=== PATIENT | male | born 1950 | race Hispanic/Latino ===

== ENCOUNTER → 2019-04-26 | Outpatient (CLI) | payer MEDICARE ==
[~2019-04-26] MED LIST: ACET-2247 PO; ATOR20TA PO; GLIP1TAB6 PO; ISOS60TA4 PO; METO25TA6 PO
== END | disposition home or self-care (01) ==
LOC: SHCH 09:40
PROVIDERS: ATTEND Internal Medicine Cardiovascular Disease
DX: I11.9 Hypertensive heart disease without heart failure (principal); I21.4 Non-ST elevation (NSTEMI) myocardial infarction; R07.9 Chest pain, unspecified; Z88.0 Allergy status to penicillin; Z88.2 Allergy status to sulfonamides; Z95.1 Presence of aortocoronary bypass graft
CPT/HCPCS: 93306

== ENCOUNTER → 2019-08-08 | Outpatient (CLI) | payer MEDICARE | END | disposition home or self-care (01) | LOC: SHCH 10:32 | PROVIDERS: ATTEND Internal Medicine Cardiovascular Disease | DX: I70.213 Atherosclerosis of native arteries of extremities with intermittent claudication, bilateral legs (principal); R09.89 Other specified symptoms and signs involving the circulatory and respiratory systems | CPT/HCPCS: 93880; 93925 ==

== ENCOUNTER 2021-03-03 08:30 | Day surgery (SDC) | payer MEDICARE ==
[2021-02-25 11:49] LABS: BASOPHILS % (AUTO) 0.7 % (0.0-5.0); EOSINOPHILS % (AUTO) 3.9 % (0.0-8.0); HEMATOCRIT 45.9 % (42-54); LYMPHOCYTES % (AUTO) 18.8 % (21.0-51.0); MEAN CORPUSCULAR HEMOGLOBIN 30.8 pg (27.0-33.0); MEAN CORPUSCULAR HGB CONC 33.1 g/dL (32.0-36.0); MEAN CORPUSCULAR VOLUME 92.9 fL (79-99); MONOCYTES % (AUTO) 8.2 % (3.0-13.0); NEUTROPHILS % (AUTO) 67.6 % (40.0-77.0); PLATELET COUNT (AUTO) 125 K/uL (130-400); RED BLOOD CELL COUNT(AUTO) 4.94 MIL/uL (4.50-6.20); RED CELL DISTRIBUTION WIDTH 13.3 % (11.0-15.5); WHITE BLOOD COUNT (AUTO) 7.5 K/uL (4.8-10.8)
[2021-02-25 11:49] LABS: APPEARANCE,URINE Clear (CLEAR); BILIRUBIN,URINE Negative (NEGATIVE); COLOR,URINE Yellow (YELLOW); GLUCOSE, URINE (UA) >=1000 mg/dL (NEGATIVE); KETONES,URINE Negative (NEGATIVE); LEUKOCYTE ESTERASE ,URINE Negative (NEGATIVE); NITRATE,URINE Negative (NEGATIVE); OCCULT BLOOD,URINE Negative (NEGATIVE); PH,URINE 5.5 (5.0-8.0); PROTEIN,URINE POS 1+ mg/dL (NEGATIVE)
[2021-02-25 12:00] LABS: INR 1.01 (0.85-1.15)
[2021-02-25 12:00] LABS: BACTERIA,URINE None Seen /HPF (None Seen); RBC,URINE 0-1 /HPF (0-1); SQUAMOUS EPITHELIAL CELL,UR 0-2 /HPF (0-2); WBC,URINE None Seen /HPF (0-1)
[2021-02-25 12:01] LABS: PARTIAL THROMBOPLASTIN TIME 28.2 SEC (26.3-35.5)
[2021-02-25 12:10] LABS: CREATININE 1.4 mg/dL (0.5-1.5); POTASSIUM 5.3 mmol/L (3.5-5.1)
[2021-03-02 10:48] VITALS: BP 166/74
[2021-03-03] VITALS (14 sets, daily range): BP systolic 150–173; BP diastolic 75–84
[~2021-03-03] VITALS: Ht 160 cm; Wt 68.6 kg
[~2021-03-03 08:30] MED LIST changes: -ACET-2247 PO; +AEC81 PO; -ATOR20TA PO; +ATOR40TA69 PO; +CLOP75TA14 PO; +FAMO10TA39 PO; +GABA-529 PO; -GLIP1TAB6 PO; -ISOS60TA4 PO; +ISOS60TA77 PO; +LEVO500T90 PO; +LISI10TA24 PO; +METF-444 PO; +PIOG15TA6 PO; +SITA100T12 PO
[2021-03-03] MEDS ORDERED: GENTAMICIN 80 MG/NS 100 ML PB 100 ML IV SCH (09:00)
[2021-03-03] MEDS ORDERED: 0.9%NACL 1000ML 1,000 ML IV ONE (09:28)
[2021-03-03] MEDS ORDERED: CEFTRIAXONE 1G VIAL ONE (09:28)
[2021-03-03] MEDS: CEFTRIAXONE 1G VIAL IVP ONE ×2 (09:34→11:30)
[2021-03-03 10:37] LABS: ABG BASE EXCESS -0.5 mmol/L (-2.0-3.0); ABG HCO3 26.4 mmol/L (21.0-28.0); ABG OXYGEN SATURATION 30.3 % (95.0-99.0); ABG PCO2 52 mmHg (35-48)
[2021-03-03] MEDS ORDERED: ONDANSETRON 4MG INJ ONE (11:14)
[2021-03-03] MEDS ORDERED: LIDOCAINE PF 100MG/5ML (2%) SYRINGE 5ML ONE (11:14)
[2021-03-03] MEDS ORDERED: PROPOFOL 10 MG/ML 20ML VIAL IV ONE (11:14)
[2021-03-03] MEDS ORDERED: ROCURONIUM 10MG/1ML SYR 10 MG/ML ML ONE (11:15)
[2021-03-03] MEDS ORDERED: FENTANYL CITRATE PF 50 MCG/1 ML 2ML VIAL ONE (11:15)
[2021-03-03] MEDS ORDERED: EPHEDRINE SULFATE 50 MG/ML AMPULE ONE (11:34)
[2021-03-03] MEDS ORDERED: NEOSTIGMINE 5MG/5ML SYR IV ONE (11:40)
[2021-03-03] MEDS ORDERED: GLYCOPYRROLATE 1 MG/5 ML SYRINGE ONE (11:40)
== END 2021-03-03 13:30 | disposition home or self-care (01) ==
LOC: DAH 08:30
PROVIDERS: ATTEND Urology
DX: C61 Malignant neoplasm of prostate (principal); Z20.822 Contact with and (suspected) exposure to COVID-19; R97.20 Elevated prostate specific antigen [PSA]; I10 Essential (primary) hypertension; E11.9 Type 2 diabetes mellitus without complications; M19.90 Unspecified osteoarthritis, unspecified site; I25.2 Old myocardial infarction; I25.10 Atherosclerotic heart disease of native coronary artery without angina pectoris; Z83.3 Family history of diabetes mellitus; Z79.01 Long term (current) use of anticoagulants; Z79.899 Other long term (current) drug therapy; Z88.0 Allergy status to penicillin; Z88.1 Allergy status to other antibiotic agents; Z79.82 Long term (current) use of aspirin
CPT/HCPCS: 36415 ×2; 55700; 71045; 76872; 80048; 81001; 82435; 82803; 82947; 82948 ×2; 83605; 84132 ×2; 84295; 85018; 85025; 85610; 85730; 87088; 87635; 88305; 93005; A4215 ×2; A4221; A4222; A4223; A4600; A4649; A4663; A6260; C9803; J0696; J1580; J2001; J2405; J2704; J2710; J3010; J3490 ×2; J7030; 96365